=== PATIENT | female | born 1945 | race Caucasian/White ===

== ENCOUNTER 2016-10-22 11:23 | Outpatient (CLI) | payer MEDICARE, OTHER ==
[2016-10-22 12:09] LABS: BASOPHILS % 0.9 (0.0-1.5); EOSINOPHILS % 6.9 % (0.0-6.8); MEAN CORPUSCULAR HEMOGLOBIN 30.5 pg (28.0-34.0); MEAN CORPUSCULAR VOLUME 91.8 fl (80.0-100.0); MONOCYTES % 5.7 % (0.0-11.0); NEUTROPHILS # 3.8 # k/uL (1.4-7.7)
--- NOTE | 2016-10-22 14:56 | Diagnostic Imaging Report ---
EDU PIMENTEL [facility] [address] [facility] [address] [address] Report Submission Date: Oct 22, 2016 12:26:27 PM CDT Patient Study Name: MARÍA SERRANO Date: Oct 22, 2016 11:40:55 AM CDT Modality Type: CR Gender: F Description: LOWER EXTREMITY : 47 Institution: [facility] Physician: EDU PIMENTEL Examination: Plain film femur History: Mid femoral discomfort Comparison exams: None provided Findings: 4 views of the femur demonstrate normal cortical margins. No fracture no dislocation. Hip replacement in place. Mild knee articular degenerative changes. No soft tissue abnormality. Impression: Hip replacement and mild knee articular degenerative changes. No acute osseous abnormality. Electronically signed on Oct 22, 2016 12:26:27 PM CDT by: Sj BOONE
== END 2016-10-22 11:24 ==
LOC: RAD 11:23
PROVIDERS: ATTEND Family Medicine
DX: M79.604 Pain in right leg (principal)
CPT/HCPCS: 36415; 73552; 85025; 85651; 86141

== ENCOUNTER 2016-11-13 11:13 | Outpatient (CLI) | payer MEDICARE, OTHER ==
--- NOTE | 2016-11-13 14:25 | Diagnostic Imaging Report ---
EDU PIMENTEL [facility] [address] [facility] [address] [address] Report Submission Date: Nov 13, 2016 12:35:16 PM CDT Patient Study Name: MARÍA SERRANO Date: Nov 13, 2016 11:28:12 AM CDT Modality Type: CR Gender: F Description: PELVIS : 47 Institution: [facility] Physician: EDU PIMENTEL Examination: Plain film pelvis/hip History: Discomfort Comparison exams: 22 October 2016 Findings: 3 view of the pelvis and hip demonstrates right hip prosthesis in place. No evidence for fracture or loosening. Superior and inferior pubic rami and iliac wings are without abnormality. Lumbar degenerative changes. Pelvic phleboliths. Impression: Right hip prosthesis in place. No evidence for fracture or loosening. Scattered degenerative changes. Electronically signed on Nov 13, 2016 12:35:16 PM CDT by: Sj BOONE
== END 2016-11-13 11:14 ==
LOC: RAD 11:13
PROVIDERS: ATTEND Family Medicine
DX: M25.551 Pain in right hip (principal)
CPT/HCPCS: 73502

== ENCOUNTER 2017-06-19 07:41 | Outpatient (CLI) | payer MEDICARE, OTHER ==
[2017-06-19 08:38] LABS: eGFR (African) > 60; eGFR (Non-African) > 60
== END 2017-06-19 07:42 ==
LOC: LAB 07:41
PROVIDERS: ATTEND Family Medicine
DX: E78.5 Hyperlipidemia, unspecified (principal)
CPT/HCPCS: 36415; 80053; 80061

== ENCOUNTER 2018-12-06 09:35 | Emergency (ER) | payer MEDICARE, OTHER ==
[2018-12-06] MEDS: LIDOCAINE HCL 1% MDV 200MG/20ML VIAL ONE (10:22)
[2018-12-06] MEDS: LIDOCAINE HCL 1% MDV 200MG/20ML VIAL IM ONE (10:23)
[2018-12-06] MEDS: DIPH,PERTUSS(ACELL),TET VAC/PF 0.5 ML DISP.SYRIN IM ONE (11:04)
--- NOTE | 2018-12-06 11:08 | ED Physician Documentation ---
General Adult - HISTORIAN Historian: patient - HPI Stated Complaint: Left Thumb Lac Chief Complaint: General Adult Onset: minutes Timing: still present Severity: moderate Further Comments: yes (Pt is a 73 yo female with a laceration to the pad of her L thumb. Pt was using a knife to open a package when she slipped and fileted the pad of her L thumb, leaving a flap laceration. Tetanus is not utd. Pt has had a lot of bleeding. She takes daily aspirin, but no other blood thinners.) - ROS CONST: no problems EYES/ENT: none CVS/RESP: none GI/: none MS/SKIN/LYMPH: other (L thumb laceration) - PAST HX Past History: none Allergies/Adverse Reactions: Allergies Allergy/AdvReac Type Severity Reaction Status Date / Time No Known Drug Allergies Allergy Verified 12/06/18 09:51 Home Medications: Ambulatory Orders Medication Instructions Recorded Cephalexin [Keflex] 500 mg PO Q12H #10 capsule 12/06/18 - SOCIAL HX Smoking History: non-smoker - FAMILY HX Family History: No - VITAL SIGNS Vital Signs: Vital Signs Temp Pulse Resp BP Pulse Ox 97.6 F 66 20 136/74 96 12/06/18 09:48 12/06/18 09:48 12/06/18 09:48 12/06/18 09:48 12/06/18 09:48 - REVIEWED ASSESSMENTS Nursing Assessment Reviewed: Yes Vitals Reviewed: Yes Procedures Wound Location: upper extremity (L thumb) Wound Length: 3.5 cm Wound's Depth, Shape: superficial Wound Explored: no foreign body removed Irrigated w/ Saline (ccs): 30 Betadine Prep?: No (Hibiclens used) Anesthesia: 1% Lidocaine (digital block) Volume of Anesthetic: 6 ml Wound Debrided: minimal Wound Repaired With: sutures Suture Size/Type: 4:0, nylon Number of Sutures: 6 Layer Closure?: No Progress - Progress Progress: Tdap 0.5 ml IM Rx Keflex 500 mg po bid x 5 days Apply topical abx bid x 5 days to sutured area f/u pcp in 5-7 days for suture removal ED Results Lab/Radiology - Orders Orders: ED Orders Category Date Time Status Diph,Pertuss(Acell),Tet Vac/Pf [Adacel] Med 12/06/18 10:59 Discontinued 0.5 ml IM .ONCE ONE Lidocaine 1% 20ml ([facility]) [Xylocaine] Med 12/06/18 10:21 Discontinued 10 mg IM NOW ONE Lidocaine 1% 20ml ([facility]) [Xylocaine] Med 12/06/18 09:56 Discontinued 200 mg .ROUTE .STK-MED ONE General Adult Physical Exam - PHYSICAL EXAM GENERAL APPEARANCE: mild distress NECK: normal inspection RESPIRATORY: no resp distress, chest non-tender, breath sounds normal CVS: reg rate & rhythm, heart sounds normal BACK: normal inspection SKIN: other (Flap laceration to pad of L thumb, horseshoe shaped laceration 3.5 cm, bleeding not well controlled) EXTREMITIES: normal range of motion, other (thumb laceration as above) NEURO: oriented X3, motor nml, sensation nml Discharge Clincal Impression: thumb laceration Prescriptions: Cephalexin [Keflex] 500 mg PO Q12H #10 capsule Referrals: Rosario Nieto MD [Primary Care Provider] - Condition: Good Disposition: 01 HOME, SELF-CARE Decision to Admit: NO Decision Time: 11:09
[2018-12-06 11:21] VITALS: BP 128/89
== END 2018-12-06 11:21 | disposition home or self-care (01) ==
LOC: ED 09:35
DX: S61.012A Laceration without foreign body of left thumb without damage to nail, initial encounter (principal); W26.0XXA Contact with knife, initial encounter
CPT/HCPCS: 12002; 90471; 90715; 96372; 99282; 99284

== ENCOUNTER 2019-02-23 11:21 | Outpatient (CLI) | payer MEDICARE, OTHER ==
--- NOTE | 2019-02-23 11:53 | Diagnostic Imaging Report ---
PATIENT MR#: [id number] PATIENT PATIENT NAME: MARÍA SERRANO DATE OF : 1945 REFERRING PHYSICIAN: Rosario Nieto EXAM DATE: 02/23/2019 ACCESSION NUMBER: [id number] EXAM DESCRIPTION: T SPINE 3 VIEWS Exam: Thoracic spine. History: Status post fall. AP, lateral and swimmer's view of the thoracic spine are submitted. The vertebral body heights are adequately maintained. Endplate sclerosis and spurring throughout the thoracic spine are noted. Pedicles are intact. Paravertebral soft tissues are normal. Impression: Degenerative changes. Read by: Dr. Madi Patel Transcribed by: Transcribed Date: Electronically signed by: Dr. Madi Patel Date signed: 02/23/2019 11:53:24 AM
--- NOTE | 2019-02-23 11:54 | Diagnostic Imaging Report ---
PATIENT MR#: [id number] PATIENT PATIENT NAME: MARÍA SERRANO DATE OF : 1945 REFERRING PHYSICIAN: Rosario Nieto EXAM DATE: 02/23/2019 ACCESSION NUMBER: [id number] EXAM DESCRIPTION: C SPINE 2 OR 3 VIEWS Exam: Cervical spine. History: Fall. AP, lateral and open-mouth odontoid view of the cervical spine are submitted. Reversal of the normal lordotic curvature centered at C4-5 level is noted. Vertebral body heights ar e adequately maintained. Endplate sclerosis and spurring throughout the cervical spine is noted. The bony elemen ts of the neural canal in the odontoid process are intact. Prevertebral soft tissues are normal. Impression: Reversal of the normal lordotic curvature. No acute fracture is identified. Read by: Dr. Madi Patel Transcribed by: Transcribed Date: Electronically signed by: Dr. Madi Patel Date signed: 02/23/2019 11:54:04 AM
== END 2019-02-23 11:31 ==
LOC: RAD 11:21
PROVIDERS: ATTEND Family Medicine
DX: M54.2 Cervicalgia (principal); M54.6 Pain in thoracic spine